=== PATIENT | male | born 1985 | race Caucasian/White ===

== ENCOUNTER 2021-04-10 04:39 | Emergency (ER) | payer OTHER | END 2021-04-10 07:54 | disposition home or self-care (01) | LOC: ER 04:39 | DX: S63.004A Unspecified dislocation of right wrist and hand, initial encounter (principal); W01.10XA Fall on same level from slipping, tripping and stumbling with subsequent striking against unspecified object, initial encounter | CPT/HCPCS: 25605; 73100; 73110; 96374-59; 96375-59; 99152; 99283-25; A9270 ==

== ENCOUNTER 2021-04-16 09:20 | Day surgery (SDC) | payer OTHER, BC ==
[~2021-04-16] VITALS: Ht 177.8 cm; Wt 99.0 kg
--- NOTE | 2021-04-16 14:17 | NUR ---
04/16/21 1417 SERGEY NIETO PT EATING AND DRINKING W/O DIFF DURING RECOVERY. LAUGHING AND JOKING ENTIRE TIME. PT STATES THAT PAIN WAS AN 8/10 WITH DISCHARGE. STATES DOING WELL.
== END 2021-04-16 14:10 | disposition home or self-care (01) ==
LOC: ORSCSDS 09:20
DX: S52.501A Unspecified fracture of the lower end of right radius, initial encounter for closed fracture (principal); S52.601A Unspecified fracture of lower end of right ulna, initial encounter for closed fracture
CPT/HCPCS: A9270; C1713; J0171; J0690; J1100; J1885; J2250; J2704; J3010; J7120